=== PATIENT | female | born 1970 | race Two or more races ===

== ENCOUNTER 2023-05-13 13:55 | Inpatient (IN) | payer OTHER ==
[~2023-05-13] VITALS: Ht 320 cm; Wt 81.6 kg
[2023-05-13 14:06] VITALS: O2SAT 99
[2023-05-13] MEDS ORDERED: MORPHINE SULFATE 4 MG/ML CPJ (NOT FOR IM USE) IV STA (14:41)
[2023-05-13] MEDS ORDERED: ONDANSETRON HCL 4MG/2ML INJ IV STA (14:41)
[2023-05-13] MEDS ORDERED: SODIUM CHLORIDE 0.9% 1,000 ML IV ONE (14:45)
[2023-05-13 16:21] LABS: BASOPHILS % 0.3 % (0.0-2.0); EOSINOPHILS % 1.7 % (0.0-5.0); HEMATOCRIT. 40.4 % (36.0-48.0); HEMOGLOBIN. 13.2 g/dL (12.0-16.0); LYMPHOCYTES % 27.8 % (20.0-50.0); MEAN CORPUSCULAR HEMOGLOBIN 26.6 pg (28.0-32.0); MEAN CORPUSCULAR HGB CONC 32.8 g/dL (31.0-37.0); MEAN CORPUSCULAR VOLUME 80.9 fL (81.0-99.0); MEAN PLATELET VOLUME 10.7 fl (7.4-10.4); MONOCYTES % 7.4 % (2.0-8.0); NEUTROPHILS % 62.8 % (40.0-76.0); PLATELET 169 x1000/uL (130-400); RED BLOOD CELL COUNT 4.99 mill/uL (4.2-5.4); RED CELL DISTRIBUTION WIDTH 14.2 % (11.6-14.6); WHITE BLOOD COUNT 8.4 x1000/uL (4.5-11.0)
[2023-05-13 16:41] LABS: CHLORIDE 106 mEq/L (98-107); INDEX HEMOLYSI 3 (1-3); INDEX ICTERIC 1 (1-4); INDEX LIPEMIC 1 (1-3); POTASSIUM 3.5 mEq/L (3.5-5.1); SODIUM 140 mEq/L (136-145)
[2023-05-13 16:47] LABS: PROTHROMBIN TIME 10.3 sec (9.6-11.0)
[2023-05-13 16:52] LABS: ALANINE AMINOTRANSFERASE 47 IU/L (13-61); ALBUMIN 3.6 g/dL (3.4-5.0); ASPARTATE AMINOTRANSFERASE 35 IU/L (15-37); BILIRUBIN TOTAL 0.3 mg/dL (0.1-1.0); CALCIUM 8.8 mg/dL (8.5-10.1); CARBON DIOXIDE 27 mEq/L (21-32); CREATININE 0.6 mg/dL (0.6-1.3); GLUCOSE 92 mg/dL (70-105); NT PRO B-TYPE NATRIURETIC PEP 90 pg/mL (5-125); PROTEIN TOTAL 7.8 g/dL (6.0-8.3); TROPONIN I HIGH SENSITIVITY 8 ng/L (<54); UREA NITROGEN BLOOD 11 mg/dL (7-21)
[2023-05-13] MEDS ORDERED: IOHEXOL-350 100 ML BOTTLE ONE ×2 (17:25→21:08)
[2023-05-13 18:17] LABS: TROPONIN I HIGH SENSITIVITY 9 ng/L (<54)
[2023-05-13] MEDS ORDERED: CLONIDINE 0.1MG TABLET PO PRN (23:00)
[2023-05-13] MEDS ORDERED: ACETAMINOPHEN 325MG TABLET PO PRN (23:00)
[2023-05-13] MEDS ORDERED: MAGNESIUM/ALUMINUM HYDROXIDE/SIMETHICONE 30ML UDC PO PRN (23:00)
[2023-05-13] MEDS ORDERED: NALOXONE HCL 0.4MG/ML VIAL IV PRN (23:15)
[2023-05-14 04:00] VITALS: BP 153/86; PULSE 60; RESP 17; TEMP 98.4
[2023-05-14 04:11] LABS: BASOPHILS % 0.3 % (0.0-2.0); EOSINOPHILS % 2.6 % (0.0-5.0); HEMATOCRIT. 39.3 % (36.0-48.0); LYMPHOCYTES % 30.1 % (20.0-50.0); MEAN CORPUSCULAR HGB CONC 33.1 g/dL (31.0-37.0); MEAN CORPUSCULAR VOLUME 81.6 fL (81.0-99.0); MEAN PLATELET VOLUME 10.7 fl (7.4-10.4); PLATELET 158 x1000/uL (130-400); RED BLOOD CELL COUNT 4.81 mill/uL (4.2-5.4); RED CELL DISTRIBUTION WIDTH 14.4 % (11.6-14.6); WHITE BLOOD COUNT 9.3 x1000/uL (4.5-11.0)
[2023-05-14 04:21] LABS: CHLORIDE 108 mEq/L (98-107); INDEX HEMOLYSI 2 (1-3); INDEX ICTERIC 1 (1-4); INDEX LIPEMIC 1 (1-3); POTASSIUM 3.5 mEq/L (3.5-5.1); SODIUM 138 mEq/L (136-145)
[2023-05-14] MEDS: HYDROCODONE/ACETAMINOPHEN 5/325MG TABLET PO PRN ×2 (04:25→20:38)
[2023-05-14 04:31] LABS: CARBON DIOXIDE 27 mEq/L (21-32); CREATININE 0.8 mg/dL (0.6-1.3); GLUCOSE 120 mg/dL (70-105); PHOSPHORUS 4.5 mg/dL (2.5-4.9); TROPONIN I HIGH SENSITIVITY 13 ng/L (<54); UREA NITROGEN BLOOD 12 mg/dL (7-21)
[2023-05-14 06:34] VITALS: BP 153/86; PULSE 60; RESP 10; TEMP 98.4
[2023-05-14 08:05] VITALS: BP 148/82; PULSE 60; RESP 18; TEMP 98.5
[2023-05-14] MEDS: ENOXAPARIN 40MG/0.4ML SYR SUBCUT SCH (09:07)
[2023-05-14] MEDS ORDERED: NITROGLYCERIN 0.4MG TABLET SL SL PRN (10:45)
[2023-05-14 13:12] VITALS: BP 148/82; PULSE 60; RESP 18; TEMP 98.5
[2023-05-14] MEDS: AMLODIPINE 10MG TABLET PO SCH (13:17)
[2023-05-14] MEDS: ASPIRIN 81MG TABLET PO SCH (13:17)
[2023-05-14 15:55] VITALS: BP 140/78; PULSE 62; RESP 19; TEMP 98.7
[2023-05-14 17:11] LABS: *AMPHETAMINES SCREEN URINE NEGATIVE (NEGATIVE); *BARBITURATES SCREEN URINE NEGATIVE (NEGATIVE); *BENZODIAZEPINES SCREEN URINE NEGATIVE (NEGATIVE); *COCAINE SCREEN URINE NEGATIVE (NEGATIVE); CANNABINOID URINE SCREEN NEGATIVE (NEGATIVE); ECSTASY MDMA SCREEN URINE NEGATIVE (NEGATIVE); METHADONE URINE SCREEN NEGATIVE (NEGATIVE); OPIATES URINE SCREEN PRESUMTIVE POSITIVE (NEGATIVE); PHENCYCLIDINE URINE SCREEN NEGATIVE (NEGATIVE)
[2023-05-14] MEDS ORDERED: LORAZEPAM 2MG/ML CPJ IV NR (18:15)
[2023-05-14] MEDS: METOPROLOL TARTRATE 25MG TABLET PO SCH (20:38)
[2023-05-14] MEDS: ATORVASTATIN CALCIUM 20MG TABLET PO SCH (20:38)
[2023-05-15 07:07] LABS: BASOPHILS % 0.6 % (0.0-2.0); EOSINOPHILS % 3.1 % (0.0-5.0); HEMATOCRIT. 40.2 % (36.0-48.0); HEMOGLOBIN. 13.5 g/dL (12.0-16.0); LYMPHOCYTES % 32.1 % (20.0-50.0); MEAN CORPUSCULAR HEMOGLOBIN 27.7 pg (28.0-32.0); MEAN CORPUSCULAR HGB CONC 33.6 g/dL (31.0-37.0); MEAN CORPUSCULAR VOLUME 82.3 fL (81.0-99.0); MEAN PLATELET VOLUME 11.1 fl (7.4-10.4); MONOCYTES % 8.9 % (2.0-8.0); NEUTROPHILS % 55.3 % (40.0-76.0); PLATELET 162 x1000/uL (130-400); RED BLOOD CELL COUNT 4.89 mill/uL (4.2-5.4); RED CELL DISTRIBUTION WIDTH 14.3 % (11.6-14.6); WHITE BLOOD COUNT 7.7 x1000/uL (4.5-11.0)
[2023-05-15 07:54] LABS: CHLORIDE 106 mEq/L (98-107); INDEX HEMOLYSI 2 (1-3); INDEX ICTERIC 1 (1-4); INDEX LIPEMIC 2 (1-3); POTASSIUM 3.3 mEq/L (3.5-5.1); SODIUM 138 mEq/L (136-145)
[2023-05-15 08:00] VITALS: BP 134/89; PULSE 65; RESP 16; TEMP 96.5
[2023-05-15] MEDS ORDERED: POTASSIUM CHLORIDE 20MEQ TABLET SR PO NR (08:00)
[2023-05-15 08:03] LABS: CALCIUM 8.2 mg/dL (8.5-10.1); CARBON DIOXIDE 29 mEq/L (21-32); CHOLESTEROL 162 mg/dL (<200); CREATININE 0.7 mg/dL (0.6-1.3); GLUCOSE 134 mg/dL (70-105); HDL CHOLESTEROL 23 mg/dL (40-59); LDL CHOLESTEROL 45 mg/dL (5-100); TRIGLYCERIDE 798 mg/dL (0-150); UREA NITROGEN BLOOD 15 mg/dL (7-21)
[2023-05-15] MEDS: AMLODIPINE 10MG TABLET PO SCH (09:34)
[2023-05-15] MEDS: ASPIRIN 81MG TABLET PO SCH (09:35)
[2023-05-15] MEDS: METOPROLOL TARTRATE 25MG TABLET PO SCH ×2 (09:35→20:53)
[2023-05-15] MEDS: ENOXAPARIN 40MG/0.4ML SYR SUBCUT SCH (09:38)
[2023-05-15] MEDS ORDERED: METO25TA6 PO (10:55)
[2023-05-15] MEDS ORDERED: ASPI-1160 PO (10:55)
[2023-05-15] MEDS ORDERED: ATOR20TA PO (10:55)
[2023-05-15] MEDS ORDERED: AMLO10TA80 PO (10:55)
[2023-05-15] MEDS ORDERED: LORAZEPAM 2MG/ML CPJ IV PRN (11:15)
[2023-05-15 16:00] VITALS: BP 139/76; PULSE 86; RESP 18; TEMP 97
[2023-05-15 20:00] VITALS: BP 136/78; PULSE 78; RESP 18; TEMP 97.7
[2023-05-15] MEDS: ATORVASTATIN CALCIUM 20MG TABLET PO SCH (20:53)
[2023-05-16] VITALS: BP 133/89; PULSE 73; RESP 18; TEMP 97.1
[2023-05-16 04:00] VITALS: BP 146/82; PULSE 66; RESP 18; TEMP 96.9
[2023-05-16 08:00] VITALS: BP 141/96; PULSE 69; RESP 18; TEMP 98.1
[2023-05-16] MEDS ORDERED: POTASSIUM CHLORIDE 20MEQ TABLET SR PO NR (09:00)
[2023-05-16] MEDS: AMLODIPINE 10MG TABLET PO SCH (09:16)
[2023-05-16] MEDS: ASPIRIN 81MG TABLET PO SCH (09:17)
[2023-05-16] MEDS: METOPROLOL TARTRATE 25MG TABLET PO SCH (09:17)
[2023-05-16] MEDS: ENOXAPARIN 40MG/0.4ML SYR SUBCUT SCH (09:20)
[2023-05-16 12:00] VITALS: BP 139/85; PULSE 72; RESP 17; TEMP 98
[2023-05-16] MEDS ORDERED: IOHEXOL-350 100 ML BOTTLE ONE (12:01)
[2023-05-16] MEDS ORDERED: NITROGLYCERIN SPRAY/4.9GM CAN TL NR (12:15)
[2023-05-16 16:00] VITALS: BP 140/77; PULSE 72; RESP 18; TEMP 98.5
[2023-05-16 18:52] VITALS: BP 132/72; PULSE 74; TEMP 98
== END 2023-05-16 19:00 | disposition home or self-care (01) | DRG 199 ==
LOC: ER 13:55 → EDBEDREQTM 19:32 → EDBEDREQ 19:32 → 8WST 22:17
PROVIDERS: ATTEND Family Medicine Adult Medicine
DX: I16.1 Hypertensive emergency (principal); E66.9 Obesity, unspecified; F17.200 Nicotine dependence, unspecified, uncomplicated; I10 Essential (primary) hypertension; Z68.1 Body mass index [BMI] 19.9 or less, adult
CPT/HCPCS: 36415; 70551; 71045; 71275; 74174; 75571; 80048; 80053; 80061; 80305; 83735; 83880; 84100; 84484; 85025; 86850; 86900; 93005; 93306; 93970; 99291; J1650; J2060; J2270; J2405; J7030; Q9967